=== PATIENT | male | born 1940 | race Caucasian/White ===

== ENCOUNTER 2017-03-07 11:53 | Emergency (ER) | payer MEDICARE, OTHER ==
[2017-03-07] MEDS ORDERED: Sodium Chloride 0.9% 10 ML Syringe FLUSH PRN (12:23)
[2017-03-07] MEDS ORDERED: Albuterol/Ipratropium 3.0-0.5 MG/3 ML Neb Soln NEB ONE (12:24)
--- NOTE | 2017-03-07 13:28 | EDM.PDOC ---
ED HPI GENERAL MEDICAL PROBLEM - General Chief Complaint: Respiratory Problem Stated Complaint: TROUBLE BREATHING Time Seen by Provider: 03/07/17 12:04 Source of Information: Reports: Patient History Limitations: Reports: No Limitations - History of Present Illness INITIAL COMMENTS - FREE TEXT/NARRATIVE: The patient presents with shortness of breath. He says this all started on Wednesday. He just got done shoveling snow and he came in and sat down and he developed shortness of breath. He said he was wheezing. This lasted for a couple of hours. It happened again last night from 5pm to midnight. He is okay now. He has no chest pain. He has no pain in his legs. His thinks he has some edema in his legs but he does not think he does. He has no fever or chills and he has not been coughing. He has some mid abdominal pain at times with no nausea or vomiting. Onset: Gradual Duration: Day(s): (5) Location: Reports: Abdomen Quality: Reports: Ache Severity: Mild Improves with: Reports: None Worsens with: Reports: None Associated Symptoms: Reports: Shortness of Breath. Denies: Chest Pain, Cough, Fever/Chills, Headaches, Nausea/Vomiting Middle Epigastric Pain Score (Numeric/FACES): 2 - Related Data Allergies Allergy/AdvReac Type Severity Reaction Status Date / Time No Known Allergies Allergy Verified 03/07/17 12:06 Home Meds: Home Meds Albuterol [IMW: Albuterol HFA] 2 puff .XX Q6HR PRN #8 gm 03/07/17 [Rx] Prednisone [IJD: predniSONE] 40 mg PO WITHBREAKFAST #10 tab 03/07/17 [Rx] Simvastatin [Zocor] 40 mg PO BEDTIME 03/07/17 [History] Terazosin HCl [Terazosin] 2 mg PO DAILY 03/07/17 [History] Past Medical History HEENT History: Reports: Impaired Vision Cardiovascular History: Reports: High Cholesterol - Past Surgical History GI Surgical History: Reports: Appendectomy, Colonoscopy Social & Family History - Tobacco Use Smoking Status *Q: Former Smoker Used Tobacco, but Quit: Yes Month Tobacco Last Used: 13 years ago - Caffeine Use Caffeine Use: Reports: Coffee - Recreational Drug Use Recreational Drug Use: No ED ROS GENERAL - Review of Systems Review Of Systems: See Below Constitutional: Reports: No Symptoms HEENT: Reports: No Symptoms Respiratory: Reports: Shortness of Breath, Wheezing. Denies: Cough Cardiovascular: Reports: No Symptoms Endocrine: Reports: No Symptoms GI/Abdominal: Reports: Abdominal Pain. Denies: Nausea, Vomiting Musculoskeletal: Reports: No Symptoms ED EXAM, GENERAL - Physical Exam Exam: See Below Exam Limited By: No Limitations General Appearance: Alert, No Apparent Distress Ears: Normal External Exam Nose: Normal Inspection Head: Atraumatic, Normocephalic Neck: Normal Inspection Respiratory/Chest: No Respiratory Distress, Wheezing (Mild expiratory wheezes) Cardiovascular: Regular Rate, Rhythm, No Edema, No Murmur GI/Abdominal: Soft, Non-Tender, No Organomegaly, No Mass Extremities: Normal Inspection Neurological: Alert, Oriented, No Motor/Sensory Deficits EKG INTERPRETATION EKG Date: 03/07/17 Time: 12:43 Rhythm: NSR Rate (Beats/Min): 64 [place]: Normal P-Wave: Present QRS: Normal ST-T: Normal QT: Normal Course - Vital Signs Last Recorded V/S: Last Vital Signs Temp 96.6 F 03/07/17 12:01 Pulse 67 03/07/17 12:01 Resp 18 03/07/17 12:01 BP 151/86 H 03/07/17 12:01 Pulse Ox 94 L 03/07/17 12:39 - Orders/Labs/Meds Orders: Active Orders 24 hr Category Date Time Status Cardiac Monitoring [RC] . DIRECTED Care 03/07/17 12:23 Active EKG Documentation Completion [RC] STAT Care 03/07/17 12:24 Active Oxygen Therapy [RC] PRN Care 03/07/17 12:23 Active Peripheral IV Care [RC] . DIRECTED Care 03/07/17 12:24 Active RT Aerosol Therapy [RC] ASDIRECTED Care 03/07/17 12:24 Active Chest 2V [CR] Stat Exams 03/07/17 12:24 Taken Sodium Chloride 0.9% [Normal Saline] 1,000 ml Med 03/07/17 13:45 Active IV ASDIRECTED Sodium Chloride 0.9% [Normal Saline] 100 ml Med 03/07/17 13:45 Active IV ASDIRECTED Peripheral IV Insertion Adult [OM.PC] Stat Oth 03/07/17 12:23 Ordered Medication Orders Sodium Chloride (Normal Saline) 1,000 mls @ 150 mls/hr IV ASDIRECTED KEVAN Last Admin: 03/07/17 13:45 Dose: 150 mls/hr Sodium Chloride (Normal Saline) 100 mls @ 75 mls/hr IV ASDIRECTED KEVAN Last Admin: 03/07/17 14:25 Dose: 75 mls/hr Labs: Laboratory Tests 03/07/17 03/07/17 03/07/17 Range/Units 12:50 12:50 12:50 WBC 5.34 (4.23-9.07) K/mm3 RBC 4.15 L (4.63-6.08) M/mm3 Hgb 14.3 (13.7-17.5) gm/L Hct 43.1 (40.1-51.0) % MCV 103.9 H (79.0-92.2) fl MCH 34.5 H (25.7-32.2) pg MCHC 33.2 (32.2-35.5) g/dl RDW Std Deviation 49.3 H (35.1-43.9) fL Plt Count 185 (163-337) K/mm3 MPV 9.6 (9.4-12.3) fl Neut % (Auto) 71.5 H (34.0-67.9) % Lymph % (Auto) 19.1 L (21.8-53.1) % [place] % (Auto) 7.1 (5.3-12.2) % Eos % (Auto) 1.9 (0.8-7.0) Baso % (Auto) 0.4 (0.1-1.2) % Neut # (Auto) 3.82 (1.78-5.38) K/mm3 Lymph # (Auto) 1.02 L (1.32-3.57) K/mm3 [place] # (Auto) 0.38 (0.30-0.82) K/mm3 Eos # (Auto) 0.10 (0.04-0.54) K/mm3 Baso # (Auto) 0.02 (0.01-0.08) K/mm3 D-Dimer, Quantitative 1.18 H (0.19-0.59) mg/L Sodium 142 (136-145) mEq/L Potassium 4.3 (3.5-5.1) mEq/L Chloride 108 H (98-107) mEq/L Carbon Dioxide 26 (21-32) mEq/L Anion Gap 12.3 (5-15) BUN 18 (7-18) mg/dL Creatinine 1.4 H (0.7-1.3) mg/dL Est Cr Clr Drug Dosing 44.11 mL/min Estimated GFR (MDRD) 49 (>60) mL/min BUN/Creatinine Ratio 12.9 L (14-18) Glucose 112 (83-115) mg/dL Calcium 9.5 (8.5-10.1) mg/dL Total Bilirubin 0.6 (0.2-1.0) mg/dL AST 18 (15-37) U/L ALT 18 (16-63) U/L Alkaline Phosphatase 39 L (46-116) U/L Troponin I < 0.017 (0.00-0.056) ng/mL Total Protein 7.4 (6.4-8.2) g/dl Albumin 3.4 (3.4-5.0) g/dl Globulin 4.0 gm/dL Albumin/Globulin Ratio 0.9 L (1-2) Meds: Medications Generic Name Dose Route Start Last Admin Trade Name Freq PRN Reason Stop Dose Admin Sodium Chloride 1,000 mls @ 150 mls/hr 03/07/17 13:45 03/07/17 13:45 Normal Saline IV 150 mls/hr ASDIRECTED KEVAN Administration Sodium Chloride 100 mls @ 75 mls/hr 03/07/17 13:45 03/07/17 14:25 Normal Saline IV 75 mls/hr ASDIRECTED KEVAN Administration Discontinued Medications Generic Name Dose Route Start Last Admin Trade Name Freq PRN Reason Stop Dose Admin Albuterol/Ipratropium 3 ml 03/07/17 12:24 03/07/17 12:39 Duoneb 3.0-0.5 Mg/3 Ml NEB 03/07/17 12:25 3 ml ONETIME ONE Administration Iopamidol 100 ml 03/07/17 13:43 03/07/17 14:24 Isovue-370 (76%) IVPUSH 03/07/17 13:44 100 ml ONETIME ONE Administration Sodium Chloride 10 ml 03/07/17 12:23 03/07/17 12:52 Saline Flush FLUSH 10 ml ASDIRECTED PRN Administration Keep Vein Open - Re-Assessments/Exams Free Text/Narrative Re-Assessment/Exam: 03/07/17 13:28 I ordered an IV saline lock, EKG, CXR, labs and a duoneb. 03/07/17 15:01 His CXR looks good. His EKG shows a NSR with no acute changes. His CBC looks good. His D-dimer was elevated at 1.18. His creatinine was 1.4. I ordered NS at 150mL/hr. His troponin was negative. His CT shows no findings of pulmonary embolism, diffuse emphysematous change. Probable fibrosis within the right lugn base. Small solid lesion within the upper left kidney measuring 1.8cm and small renal cell carcinoma cannot be excluded. Mild aneurysmal dilatation of the ascending aorta. Moderate coronary artery calcifecation is seen. It appears he has some emphysema that has not been diagnosed before. He has never had these symptoms before. I will get him on albuterol inhaler and some prednisone for 5 days. He knows about the tumor on his kidney and that is being worked up. Departure - Departure Time of Disposition: 15:10 Disposition: Home, Self-Care 01 Condition: Good Clinical Impression: Thoracic ascending aortic aneurysm, Mass of kidney Emphysema lung Qualifiers: Emphysema type: unspecified Qualified Code(s): J43.9 - Emphysema, unspecified - Discharge Information Prescriptions: Albuterol [IMW: Albuterol HFA] 2 puff .XX Q6HR PRN #8 gm PRN Reason: Shortness Of Breath Prednisone [IJD: predniSONE] 40 mg PO WITHBREAKFAST #10 tab Referrals: Fausto Wilks MD [Primary Care Provider] - 1 Week Forms: ED Department Discharge Additional Instructions: Take the prednisone daily for 5 days. Use the inhaler 2 puffs every 6hours as needed for wheezing or shortness of breath. Follow up with Dr Wilks next week. Please return if you are worse. - My Orders Last 24 Hours: My Active Orders 03/07/17 12:23 Cardiac Monitoring [RC] . DIRECTED Oxygen Therapy [RC] PRN Peripheral IV Insertion Adult [OM.PC] Stat 03/07/17 12:24 EKG Documentation Completion [RC] STAT Peripheral IV Care [RC] . DIRECTED RT Aerosol Therapy [RC] ASDIRECTED Chest 2V [CR] Stat 03/07/17 13:45 Sodium Chloride 0.9% [Normal Saline] 1,000 ml IV ASDIRECTED Sodium Chloride 0.9% [Normal Saline] 100 ml IV ASDIRECTED - Assessment/Plan Last 24 Hours: My Active Orders 03/07/17 12:23 Cardiac Monitoring [RC] . DIRECTED Oxygen Therapy [RC] PRN Peripheral IV Insertion Adult [OM.PC] Stat 03/07/17 12:24 EKG Documentation Completion [RC] STAT Peripheral IV Care [RC] . DIRECTED RT Aerosol Therapy [RC] ASDIRECTED Chest 2V [CR] Stat 03/07/17 13:45 Sodium Chloride 0.9% [Normal Saline] 1,000 ml IV ASDIRECTED Sodium Chloride 0.9% [Normal Saline] 100 ml IV ASDIRECTED
[2017-03-07] MEDS ORDERED: Iopamidol 755 Mg/ML 100 ML Bottle IVPUSH ONE (13:43)
[2017-03-07] MEDS ORDERED: Sodium Chloride 0.9% 100 ML IV SCH (13:45)
[2017-03-07] MEDS ORDERED: Sodium Chloride 0.9% 1,000 ML IV SCH (13:45)
--- NOTE | 2017-03-07 14:41 | CT ---
Addendum: Size discrepancy is noted between the body and impression describing a small left renal lesion. This renal lesion was also not compared to previous abdominal and pelvic CT exams, most remote study performed on 04/24/15. This left-sided renal lesion measures approximately 1.8 cm in greatest dimension. This renal lesion remains stable to baseline abdominal and pelvic CT study of 04/24/15. Differential continues to include renal cell carcinoma (lower grade). --- Addendum1 above dictated on [03/15/2017 10:28] by [Filiberto Wilder, Gerson Hoskins] --- --- Addendum1 above signed on [03/15/2017 10:33] by [Filiberto Wilder Hilton J.] --- --- Original report below dictated on [03/07/2017 14:37] by [Filiberto Wilder, Gerson Hoskins] --- --- Original report below signed on [03/07/2017 14:38] by [Filiberto Wilder, Gerson Hoskins] --- CT chest Technique: Multiple axial sections through the chest were obtained. Intravenous contrast was utilized. Study has been performed as a CT angiogram protocol. Findings: Previous chest x-ray performed earlier on the same day (12:21 PM) Findings: Pulmonary arteries are well-opacified. No filling defects are identified to indicate pulmonary embolism. Mediastinum and hilar regions show no adenopathy or mass. Ascending aorta is slightly aneurysmal at 4.1 cm. Descending aorta measures within normal limits at 2.8 cm. Moderate coronary artery calcification is seen. No pericardial thickening is seen. Cyst is noted within the right lobe of the liver measuring 1.8 cm. Solid mass is noted within the upper left kidney which shows slight calcification. This measures about 1.7 cm in size and difficult to exclude a small renal cell tumor. Diffuse emphysematous change is seen within both lungs. Increased parenchymal density is seen within the right lung base most likely due to fibrosis. No acute pulmonary densities are believed to be present. Bone window settings were reviewed which shows scattered degenerative change within the spine. Impression: 1. No findings of pulmonary embolism. 2. Diffuse emphysematous change. Probable fibrosis within the right lung base. 3. Small solid lesion within the upper left kidney measuring 1.8 cm and small renal cell carcinoma cannot be excluded. 4. Mild aneurysmal dilatation of the ascending aorta. 3. Moderate coronary artery calcification is seen. Diagnostic code #9 --- Addendum1 signed ---
--- NOTE | 2017-03-07 15:41 | CR ---
Chest: Two views of the chest were obtained. Comparison: No prior chest x-ray. Heart size is normal. Tortuous thoracic aorta is seen. Lungs are clear with no acute infiltrates. Slight degenerative endplate spurring is noted within the spine. Impression: 1. Incidental findings. Nothing acute is seen. Diagnostic code #2
== END 2017-03-07 15:25 | disposition home or self-care (01) ==
LOC: JD.ED 11:53
DX: I71.2 Thoracic aortic aneurysm, without rupture (principal); N28.89 Other specified disorders of kidney and ureter; J43.9 Emphysema, unspecified; E78.00 Pure hypercholesterolemia, unspecified; Z79.899 Other long term (current) drug therapy; Z87.891 Personal history of nicotine dependence
CPT/HCPCS: 36415; 71046; 71275; 80053; 84484; 85025; 85379; 93005; 94640; 96360; 96361; 99285; J7030; J7040; J7050; Q9967; 93010